=== PATIENT | female | born 1950 | race Caucasian/White ===

== ENCOUNTER 2019-07-25 18:10 | Emergency (ER) | payer MEDICARE, OTHER ==
[~2019-07-25] VITALS: Ht 157.5 cm; Wt 68.0 kg
[~2019-07-25 18:10] MED LIST: ALPR0.5T7 PO; FENO160T8 PO; GABA300C11 PO; LIDO5DIS21 TOP; LISI-646 PO; LOSA-69 PO; METR500T PO; NITR100C44 PO; OME20T PO; PRO20T PO; PROC25RS PO; SIMV-13 PO; TIMO0.5S32 OP; TRAV0.00 EACHEYE; ZOLP10TA6 PO; [UNRECOGNIZED DRUG - CODE] PO
[2019-07-25 19:46] LABS: Hemoglobin 11.2 g/dL (12.2-16.2); Lymphocytes # (auto) 1.2 uL; Lymphocytes % (auto) 6.9 % (10.0-50.0)
[2019-07-25 19:48] LABS: Basophils # (auto) 0 uL; Basophils % (auto) 0.2 % (0.0-2.0); Eosinophils # (auto) 0.1 uL; Eosinophils % (auto) 0.8 % (0.0-7.0); Hematocrit 34.9 % (36.0-46.0); Mean Corpuscular Hemoglobin 36.7 pg (28.0-32.0); Mean Corpuscular Hgb Conc. 32.1 g/dL (32.0-36.0); Mean Corpuscular Volume 114.5 fL (80.0-100.0); Monocytes # (auto) 2.2 uL; Monocytes % (auto) 12.4 % (0.0-12.0); Neutrophils # (auto) 13.9 uL; Neutrophils % (auto) 79.7 % (37.0-80.0); Nucleated Red Blood Cells % 0.1 %; Platelet Count (auto) 269 10^3/uL (140-450); Red Blood Cells 3.05 10^6/uL (4.0-5.20); Red Cell Distribution Width 14.6 % (11.8-14.3); White Blood Cell 17.4 10^3/uL (4.4-10.8)
[2019-07-25 20:03] LABS: Alanine Aminotransferase 13 U/L (13-56); Albumin 3.2 g/dL (3.4-5.0); Anion Gap 8 (5-15); Blood Urea Nitrogen 34 mg/dL (7-18); Calcium 8.2 mg/dL (8.5-10.1); Carbon Dioxide 19 mmol/L (21-32); Chloride 110 mmol/L (98-107); Glucose 85 mg/dL (74-106); Potassium 4.7 mmol/L (3.5-5.1); Sodium 137 mmol/L (136-145)
[2019-07-25 20:04] LABS: INR 0.96 (0.9-1.15); Partial Thromboplastin Time 32.1 sec (23.64-32.05)
[2019-07-25 20:07] LABS: Alkaline Phosphatase 48 U/L (45-117); Aspartate Aminotransferase 11 U/L (15-37); BUN/Creatinine Ratio 19.5; Bilirubin, Total 0.4 mg/dL (0.2-1.0); GFR African American 37 mL/min; GFR Non-African American 31 mL/min; Total Protein 6.6 g/dL (6.4-8.2)
[2019-07-25] MEDS ORDERED: LIDOCAINE W/ EPINEPHRINE 2% INJ 20ML VIAL IJ ONE (20:15)
[2019-07-25] MEDS ORDERED: MORPHINE SULFATE 10 MG/ML INJ 1ML SDV IM ONE (20:15)
[2019-07-25] MEDS ORDERED: ONDANSETRON ODT 4 MG TAB PO ONE (20:15)
[2019-07-25] MEDS ORDERED: MORPHINE SULFATE 10 MG/ML INJ 1ML SDV IV ONE (20:30)
[2019-07-25 20:32] VITALS: BP 89/41
== END 2019-07-25 21:53 | disposition home or self-care (01) ==
LOC: EDBD 18:10 → ER 18:14
DX: S51.811A Laceration without foreign body of right forearm, initial encounter (principal); I10 Essential (primary) hypertension; R42 Dizziness and giddiness; Z86.2 Personal history of diseases of the blood and blood-forming organs and certain disorders involving the immune mechanism; Z79.899 Other long term (current) drug therapy; Z88.6 Allergy status to analgesic agent; Z88.2 Allergy status to sulfonamides; W18.09XA Striking against other object with subsequent fall, initial encounter; Y93.89 Activity, other specified; Y92.89 Other specified places as the place of occurrence of the external cause; Y99.8 Other external cause status
CPT/HCPCS: 12006; 36415; 70450; 73090; 80053; 84484; 85025; 85610; 85730; 93005; 96374; 99284; J2270; Q0162

== ENCOUNTER 2019-08-07 15:00 | Emergency (ER) | payer MEDICARE, OTHER ==
[~2019-08-07] VITALS: Ht 160 cm; Wt 72.6 kg
[2019-08-07 15:22] VITALS: BP 179/96
== END 2019-08-07 18:11 | disposition home or self-care (01) ==
LOC: ER 15:00
DX: T82.41XA Breakdown (mechanical) of vascular dialysis catheter, initial encounter (principal); N39.0 Urinary tract infection, site not specified; E78.5 Hyperlipidemia, unspecified; I10 Essential (primary) hypertension; I25.2 Old myocardial infarction; Z45.2 Encounter for adjustment and management of vascular access device; Z90.710 Acquired absence of both cervix and uterus; Z88.2 Allergy status to sulfonamides; Z88.6 Allergy status to analgesic agent; Z79.899 Other long term (current) drug therapy
CPT/HCPCS: 36410

== ENCOUNTER 2019-08-22 12:34 | Emergency (ER) | payer MEDICARE, OTHER ==
[~2019-08-22] VITALS: Ht 160 cm; Wt 68.0 kg
[2019-08-22] MEDS ORDERED: cloNIDine HCL 0.1 MG TAB ONE (12:58)
[2019-08-22] MEDS ORDERED: cloNIDine HCL 0.1 MG TAB PO ONE (13:00)
[2019-08-22 14:23] VITALS: BP 132/64
== END 2019-08-22 14:28 | disposition home or self-care (01) ==
LOC: ER 12:36
DX: N39.0 Urinary tract infection, site not specified (principal); I10 Essential (primary) hypertension; Z45.2 Encounter for adjustment and management of vascular access device; Z88.2 Allergy status to sulfonamides; Z79.899 Other long term (current) drug therapy
CPT/HCPCS: 36410; 36556

== ENCOUNTER 2019-10-02 02:17 | Emergency (ER) | payer MEDICARE, OTHER ==
[~2019-10-02] VITALS: Ht 157.5 cm; Wt 68.0 kg
[2019-10-02 02:52] LABS: Hemoglobin 11.9 g/dL (12.2-16.2); Nucleated Red Blood Cells % 0.1 %
[2019-10-02 02:53] LABS: Basophils # (auto) 0.1 uL; Basophils % (auto) 0.5 % (0.0-2.0); Eosinophils # (auto) 0.2 uL; Eosinophils % (auto) 2.1 % (0.0-7.0); Hematocrit 35.9 % (36.0-46.0); Lymphocytes # (auto) 2.2 uL; Lymphocytes % (auto) 20.6 % (10.0-50.0); Mean Corpuscular Hemoglobin 34.8 pg (28.0-32.0); Mean Corpuscular Hgb Conc. 33.2 g/dL (32.0-36.0); Mean Corpuscular Volume 104.9 fL (80.0-100.0); Monocytes # (auto) 1.2 uL; Neutrophils # (auto) 7.1 uL; Neutrophils % (auto) 65.8 % (37.0-80.0); Platelet Count (auto) 264 10^3/uL (140-450); Red Blood Cells 3.42 10^6/uL (4.0-5.20); Red Cell Distribution Width 15.5 % (11.8-14.3); White Blood Cell 10.8 10^3/uL (4.4-10.8)
[2019-10-02 03:11] LABS: INR 0.97 (0.9-1.15); Partial Thromboplastin Time 28.8 sec (23.64-32.05)
[2019-10-02 03:14] LABS: Albumin 3.8 g/dL (3.4-5.0); Anion Gap 9 (5-15); BUN/Creatinine Ratio 27.1; Blood Urea Nitrogen 32 mg/dL (7-18); Carbon Dioxide 18 mmol/L (21-32); Chloride 115 mmol/L (98-107); GFR African American 58 mL/min; GFR Non-African American 48 mL/min; Glucose 103 mg/dL (74-106); Magnesium 2.1 mg/dL (1.6-2.6); Potassium 4.1 mmol/L (3.5-5.1); Sodium 142 mmol/L (136-145)
[2019-10-02 03:21] LABS: Alanine Aminotransferase 13 U/L (13-56); Alkaline Phosphatase 80 U/L (45-117); Aspartate Aminotransferase 11 U/L (15-37); Bilirubin, Total 0.3 mg/dL (0.2-1.0); Total Protein 7.7 g/dL (6.4-8.2)
[2019-10-02] MEDS ORDERED: ONDANSETRON ODT 4 MG TAB PO ONE (04:15)
[2019-10-02 04:31] LABS: Urine Bacteria NONE SEEN /hpf (None Seen); Urine Blood Negative /uL (Negative); Urine Hyaline Cast FEW /lpf (0 - 2); Urine Mucus FEW (None Seen); Urine Specific Gravity 1.015 (1.001-1.035); Urine WBC 3 /hpf (0 - 5)
[2019-10-02] MEDS ORDERED: NITROFURANTOIN (MONO) 100 mg CAP PO ONE (05:45)
[2019-10-02 06:18] VITALS: BP 149/67
== END 2019-10-02 06:30 | disposition home or self-care (01) ==
LOC: ER 02:17
DX: N39.0 Urinary tract infection, site not specified (principal); I10 Essential (primary) hypertension; I25.2 Old myocardial infarction; E78.5 Hyperlipidemia, unspecified; Z88.6 Allergy status to analgesic agent; Z88.2 Allergy status to sulfonamides; Z79.899 Other long term (current) drug therapy; Z90.89 Acquired absence of other organs; Z90.710 Acquired absence of both cervix and uterus
CPT/HCPCS: 36415; 71045; 74176; 80053; 81001; 83605; 83735; 83880; 84484; 85025; 85610; 85730; 87086; 93005; 99284; Q0162

== ENCOUNTER 2019-11-18 20:51 | Emergency (ER) | payer MEDICARE, OTHER ==
[~2019-11-18] VITALS: Ht 157.5 cm; Wt 68.0 kg
[2019-11-18 22:05] LABS: Basophils # (auto) 0.1 uL; Eosinophils # (auto) 0.2 uL; Mean Corpuscular Hemoglobin 34.2 pg (28.0-32.0); Mean Corpuscular Hgb Conc. 31.8 g/dL (32.0-36.0); Monocytes # (auto) 0.8 uL
[2019-11-18 22:08] LABS: Basophils % (auto) 0.9 % (0.0-2.0); Eosinophils % (auto) 3.1 % (0.0-7.0); Hematocrit 34.5 % (36.0-46.0); Lymphocytes # (auto) 1.6 uL; Lymphocytes % (auto) 22.2 % (10.0-50.0); Mean Corpuscular Volume 107.5 fL (80.0-100.0); Monocytes % (auto) 11.8 % (0.0-12.0); Neutrophils # (auto) 4.4 uL; Nucleated Red Blood Cells % 0.1 %; Platelet Count (auto) 274 10^3/uL (140-450); Red Blood Cells 3.21 10^6/uL (4.0-5.20); Red Cell Distribution Width 17.4 % (11.8-14.3)
[2019-11-18 22:21] LABS: Calcium 8.4 mg/dL (8.5-10.1); Potassium 3.2 mmol/L (3.5-5.1)
[2019-11-19] MEDS ORDERED: LORazepam 2MG/ML-1ML VIAL IV ONE (01:15)
[2019-11-19] MEDS ORDERED: DIPHENOXYLATE W/ATROPINE 2.5 MG TAB PO ONE (01:45)
[2019-11-19 03:30] VITALS: BP 178/86
== END 2019-11-19 04:35 | disposition home or self-care (01) ==
LOC: ER 20:51 → EDBD 20:51 → ER 11-19 04:35
DX: S22.32XA Fracture of one rib, left side, initial encounter for closed fracture (principal); K85.90 Acute pancreatitis without necrosis or infection, unspecified; E78.5 Hyperlipidemia, unspecified; I10 Essential (primary) hypertension; I25.2 Old myocardial infarction; R19.7 Diarrhea, unspecified; R09.81 Nasal congestion; Z88.6 Allergy status to analgesic agent; Z88.8 Allergy status to other drugs, medicaments and biological substances; Z88.2 Allergy status to sulfonamides; W01.10XA Fall on same level from slipping, tripping and stumbling with subsequent striking against unspecified object, initial encounter; Y93.89 Activity, other specified; Y92.89 Other specified places as the place of occurrence of the external cause; Y99.8 Other external cause status
CPT/HCPCS: 36415; 70450; 71250; 72125; 74176; 80048; 83605; 85025; 87493; 87804; 93005; 96374; 99285; J2060